=== PATIENT | female | born 1975 | race Caucasian/White ===

== ENCOUNTER 2016-10-18 08:02 | Emergency (ER) | payer OTHER ==
[~2016-10-18] VITALS: Ht 182.9 cm; Wt 100.0 kg
[2016-10-18] MEDS ORDERED: POTA75TA PO (08:16)
[2016-10-18] MEDS ORDERED: GING500C3 PO (08:16)
[2016-10-18] MEDS ORDERED: VITA-110 PO (08:16)
[2016-10-18] MEDS ORDERED: LOSA50TA20 PO (08:16)
[2016-10-18] MEDS ORDERED: ASCO25TA PO (08:16)
[2016-10-18] MEDS ORDERED: HYDR12CA PO (08:16)
[2016-10-18 08:18] VITALS: BP 140/99
[2016-10-18] MEDS ORDERED: FLUORESCEIN OPHTH 1 MG STRIP OS ONE (08:30)
[2016-10-18] MEDS ORDERED: TETRACAINE 0.5% OPHTH SOLN 4ML OS ONE (08:30)
[2016-10-18] MEDS ORDERED: ERYTHROMYCIN OPHTH OINT OS ONE (09:15)
[2016-10-18] MEDS ORDERED: BACIOIN23 OP (09:26)
== END 2016-10-18 09:38 | disposition home or self-care (01) ==
LOC: M ED 08:02
DX: S05.02XA Injury of conjunctiva and corneal abrasion without foreign body, left eye, initial encounter (principal); H57.12 Ocular pain, left eye; X58.XXXA Exposure to other specified factors, initial encounter; Y92.9 Unspecified place or not applicable; Y93.9 Activity, unspecified; Y99.9 Unspecified external cause status; I10 Essential (primary) hypertension; Z79.899 Other long term (current) drug therapy; Z88.1 Allergy status to other antibiotic agents

== ENCOUNTER → 2017-02-27 | Outpatient (CLI) | payer OTHER | LOC: M WHC 08:14 | DX: Z12.31 Encounter for screening mammogram for malignant neoplasm of breast (principal) | CPT/HCPCS: 77067 ==

== ENCOUNTER → 2017-08-13 | Outpatient (CLI) | payer OTHER | LOC: M CARPUL 09:22 | DX: R55 Syncope and collapse (principal) | CPT/HCPCS: 93306 ==